=== PATIENT | female | born 1975 | race Caucasian/White ===

== ENCOUNTER → 2019-04-10 | Outpatient (CLI) | payer OTHER ==
[2015-07-08 09:14] VITALS: BP 137/72
[~2019-04-10] MED LIST: ACET-704 PO; ARIP10TA9 PO; CLON-77 PO; FLUO40CA2 PO; HYDR-3164 PO; LISI-334 PO; METF500T16 PO; NAPR-683 PO; QUET100T4 PO; TRAZ-123 PO
--- NOTE | 2019-04-10 16:14 | RAD ---
MRI of the lumbar spine without contrast 04/10/2019 CLINICAL HISTORY: Low back pain. TECHNIQUE: Unenhanced T1-weighted and T2-weighted sagittal and axial and inversion recovery sagittal images of the lumbar spine were obtained. FINDINGS: Minimal S-shaped curvature of the thoracolumbar spine is seen. Degenerative signal changes and loss of height are seen involving the L5-S1 discs. The marrow signal of the visualized bony structures is within normal limits. The conus medullaris is normal morphology, position, and signal characteristics. The L1-2 and L2-3 disc spaces are within normal limits. At the L3-4, L4-5 and L5-S1 disc spaces there are minimal generalized disc bulges. Degenerative changes are seen involving the facet joints bilaterally. There is mild ligamentum flavum hypertrophy bilaterally. Small facet joint effusions are seen. These findings do not result in significant central spinal canal or neural foraminal stenosis. IMPRESSION: The changes of degenerative disc disease are seen throughout the mid and lower lumbar spine. These findings do not result in significant central spinal canal or neural foraminal stenosis. Electronically signed by: Jamey Smith MD (04/10/2019 4:11 PM) [id number]
--- NOTE | 2019-04-10 17:33 | RAD ---
Examination: NECK SOFT TISSUE History: Neck mass Comparison/Correlation: None Findings: Ultrasound examination of the neck was performed at site of a palpable abnormality at the upper neck. There is a cluster of lymph nodes present. Largest of these measures 1.2 cm x 1.1 cm x 0.7 cm. The next largest measures 0.9 cm 0.90 cm x 0.6 centimeter. Cortical thickening of 0.43 cm is evident at the largest of the lymph nodes. Fatty sivakumar are seen however. Additional much smaller lymph nodes are also evident in this region. Impression: Nonenlarged lymph nodes are present corresponding to the palpable abnormality reported. These are of indeterminate significance and probably reactive although more significant process is not entirely excluded. Correlate clinically in determining follow-up. Electronically signed by: Fady Taylor MD (04/10/2019 5:30 PM) [facility]
== END | disposition home or self-care (01) ==
LOC: MRI 15:04
DX: M51.16 Intervertebral disc disorders with radiculopathy, lumbar region (principal); M53.3 Sacrococcygeal disorders, not elsewhere classified; R22.1 Localized swelling, mass and lump, neck
CPT/HCPCS: 72148; 76536

== ENCOUNTER → 2019-09-04 | Outpatient (CLI) | payer OTHER ==
[2015-07-08 09:14] VITALS: BP 137/72
[~2019-09-04] MED LIST changes: +FLUO60TA PO; +LAMO200T6 PO; +insulin pen SUBCUT
--- NOTE | 2019-09-04 22:06 | PAIN ---
DATE OF SERVICE: 09/04/2019 INITIAL CONSULTATION FOR PAIN CLINIC CHIEF COMPLAINT: Low back and left lower extremity pain. HISTORY OF PRESENT ILLNESS: This is a 43-year-old female who presents with history of pain in the low back and bilateral lower extremities, worse on the left for about 10 years, worse over the past 1 year, not a result of any specific injury or accident that she is aware of, but getting worse with time across lower back and lower extremities, mostly in the lateral thighs and anterior thigh, especially on the left side, but also on the right. The patient reports it is worse with walking, standing, changing positions. She is not aware of any specific injury or accident that she is aware of, but has been gradually building up over many years. The patient reports it awakens her multiple times overnight from sleep, does not affect her bowel or bladder control, but does affect her ability to walk and she does use a cane most times, but she does not have it with her today. The patient has had chiropractic treatment in the past. Also, doing exercises and still walking daily, doing stretching and strength exercises. She has not had any formal physical therapy within the last few years, but had some early on about 10 years ago. The patient reports she still does exercises, she was taught in that. The patient reports the pain is now a constant throbbing, described as aching and burning in the low back with some shooting pain in the lower extremities, again slightly worse on the left than the right. The patient rates disability from 0-10, 10 the worst, is a 10 in most categories, family home responsibilities, social activity, recreation, occupation and sexual behavior, 10 in life support activities, and 7 with self-care activities. The patient is currently taking [id number] Tylenol as well as ibuprofen, which does decrease the pain, but only by about 10% or so. The patient reports it is essentially not decreasing the pain effectively. The patient reports no loss of motor function, but significant fatigability, especially left lower extremity with walking and standing. The patient did have MRI scan of the lumbar spine showing degenerative disk disease throughout the mid and lower lumbar spine, L3-L4, L4-L5 and L5-S1, specifically with minimal generalized disk bulges, degenerative changes in the facet joints, also mild ligamentum flavum hypertrophy bilaterally with small facet joint effusion seen. PAST MEDICAL HISTORY: Significant for type 2 diabetes, now insulin-dependent; hypertension, cigarette smoking 1 pack a day for 15 years, sleep apnea, obesity, arthritis, bipolar disorder, anxiety, posttraumatic stress disorder. PREVIOUS SURGERIES: Includes a uterine ablation in 2017. CURRENT MEDICATIONS: Include multivitamins, calcium, acyclovir, Lantus insulin, gabapentin, Victoza, amitriptyline, Diflucan, lisinopril, glimepiride, Lipitor. ALLERGIES: The patient has no known drug allergies. FAMILY HISTORY: Significant for no known diseases or conditions in her family that she is aware of. SOCIAL HISTORY: The patient smokes 1 pack a day, has for 15 years. Does not drink alcohol, does not use any illegal, illicit or recreational drugs. She is single, lives locally in [place], [place]. Reports she is currently on disability, not related to any current pain condition at this time. REVIEW OF SYSTEMS: The patient's review of systems is positive for those items mentioned in history of present illness. All systems reviewed and otherwise negative. It is complete, full and well documented on the patient's chart. PHYSICAL EXAMINATION: VITAL SIGNS: The patient's blood pressure is 102/59, pulse is 116, respirations 18, temperature 98.4 degrees Fahrenheit, height is 5 feet 7 inches, weight is 223 pounds. GENERAL: The patient is awake, alert, oriented, appropriate, very pleasant demeanor. HEENT: Shows normocephalic, atraumatic. Extraocular movements are intact and symmetrical. Oral cavity: Mucous membranes moist and pink. Dentition is intact. NECK: Shows anterior throat supple without palpable lymphadenopathy noted. Swallow reflex symmetrical. Neck shows full rotational motion of cervical spine, both laterally as well as extension and flexion without difficulty. CHEST: Shows normal on inspection. Breath sounds are clear bilaterally. No rales, rhonchi or wheezes auscultated. HEART: Shows S1, S2 clear. No murmurs auscultated. ABDOMEN: Obese but soft, nontender, nondistended. No palpable organomegaly is noted. There is no rebound or guarding demonstrated. BACK: Shows spine grossly in the midline. Normal appearing cervical lordotic curvature, increased thoracic kyphosis and some minor flattening of lumbar lordotic curvature. Lumbar paraspinous muscle shows symmetrical on inspection, on palpation shows some moderate tenderness diffusely only in the low lumbar distribution, more on the right than the left, but without asymmetry, without atrophy, hypertrophy and without trigger points. No tenderness over the spinous processes, sacrum or sacroiliac regions with palpation. The patient does show good rotational motion of lumbar spine, both laterally as well as extension and flexion without significant increase in pain. EXTREMITIES: Lower extremities show deep tendon reflexes at 1+ in the patellar and tendo calcaneus tendons. Motor exam is 4 on a scale of 5 on the left and 5/5 on the right with dorsiflexion, extension, quadriceps and hamstring flexion. Peripheral pulses are 1+ posterior tibia. No peripheral edema is noted bilaterally. Lower extremities are warm and dry to touch, equal in color and appearance. The patient is able to stand, stand on her toes with some moderate tenderness with putting off weight on her left leg and does walk with a slight favoring gait, favoring the left lower extremity, again not using any assistive devices, but reports she does have a cane, which she is going further distances that she uses in her right hand. SKIN: Shows warm and dry, good turgor. No edema. No sores, rashes or bruising throughout. IMPRESSION: 1. This is a 43-year-old female with a long history about 10 years of low back pain, increasing in the lower extremities, again worse on the left than the right in a radicular fashion following L4-L5 dermatomal distribution. 2. MRI scan of lumbar spine as noted. 3. Obesity. 4. Arthritis. 5. Hypertension. 6. Diabetes. PLAN: Options were discussed with the patient including conservative medical managements, continued physical therapies and exercise as well as interventional techniques and she would like to pursue interventional techniques. We discussed a lumbar epidural steroid injection using description as well as anatomical models to describe the procedure. The patient will wait for preauthorization with insurance provider and we will plan on a translaminar approach for lumbar epidural steroid injection at the L4-L5 level at that time. In the meantime, the patient will continue with stretching and strength exercises and walking daily as tolerated and capable and will return for lumbar epidural steroid injection as scheduled. TODD CARRENO MD DR: MARY/carito JOB#: [id number] / [id number] ALEXIA Tran
== END | disposition home or self-care (01) ==
LOC: PNCL 09:09
PROVIDERS: ATTEND Anesthesiology
DX: M51.36 Other intervertebral disc degeneration, lumbar region (principal); I10 Essential (primary) hypertension; E11.9 Type 2 diabetes mellitus without complications; M19.90 Unspecified osteoarthritis, unspecified site; E66.9 Obesity, unspecified
CPT/HCPCS: G0463

== ENCOUNTER → 2019-10-12 | Outpatient (CLI) | payer OTHER ==
[2015-07-08 09:14] VITALS: BP 137/72
[~2019-10-12] MED LIST changes: +IOHEXOL 180 MG/ML 10 ML VIAL. ONE; +methylPREDNISolone ACETATE 40 MG/ML VIAL. ONE; +methylPREDNISolone ACETATE 80 MG/ML VIAL. ONE
--- NOTE | 2019-10-12 15:50 | PAIN ---
DATE OF SERVICE: 10/12/2019 PROGRESS NOTE FOR PAIN CLINIC DIAGNOSIS: Lumbar radiculopathy with lumbar degenerative disk disease. HISTORY OF PRESENT ILLNESS: The patient is a 44-year-old female who returns for followup status post initial evaluation and preauthorization with an insurance provider for lumbar epidural steroid injection. She has obtained that now and would like to proceed. The patient reports still significant pain in the low back and the bilateral lower extremities, worse on the left than the right. The patient reports it is in the posterior gluteus, posterolateral thigh, lateral anterior thigh, anterior medial thigh, medial calf and posterior calf, especially on the left. The patient reports that it is a 9 on a scale of 10 at all times, worst, least, and on average and is a 9 today. The patient reports it is aching, sharp, and tingling, dull in the back but constant in the legs. The patient reports it is worse with walking, standing, and changing positions. Again, it awakens her from sleep, but only very infrequently. It is much better with sitting or lying down, worse with walking and standing. The patient reports no new motor or sensory deficits. PHYSICAL EXAMINATION: VITAL SIGNS: The patient's blood pressure is 120/71, pulse 103, respirations are 20, temperature 98.1 degrees Fahrenheit, height is 5 feet 7 inches, and weight is 228 pounds. GENERAL: The patient is awake, alert, oriented, and appropriate with very pleasant demeanor. HEENT: Shows normocephalic and atraumatic. Extraocular movements are intact and symmetrical. Oral cavity: Mucous membranes are moist and pink. Dentition is intact. NECK: Shows anterior throat supple without palpable lymphadenopathy noted. Swallow reflex symmetrical. CHEST: Shows normal on inspection. Breath sounds are clear. No rales, rhonchi, or wheezes auscultated. HEART: Shows S1, S2 clear. No murmurs auscultated. ABDOMEN: Soft, nontender, and nondistended. No palpable organomegaly is noted. No rebound or guarding demonstrated. BACK: Shows spine grossly in the midline. Normal appearing thoracic kyphosis. Minor flattening of lumbar lordotic curvature. Lumbar paraspinous muscle shows symmetrical on inspection and with palpation shows some moderate tenderness in the middle and lower distribution of paraspinous muscles but without radiation. No tenderness over the spinous processes or sacrum. The patient has good rotational motion of lumbar spine, both laterally as well as extension and flexion without significant increase in pain. EXTREMITIES: The patient's lower extremities show deep tendon reflexes at 1+. The patellar and tendo calcaneus tendons are equal. Motor exam is approximately 4 on a scale of 5 with left dorsiflexion and extension, 5/5 on the right. Peripheral pulses are 1+. No peripheral edema is noted. Options were discussed with the patient. The patient's old chart was reviewed, as her current medication regimen updated. Current review of systems updated today as well. We will proceed with a lumbar epidural steroid injection today with fluoroscopic guidance. Risks were again discussed including but not limited to bleeding, infection, possibility of epidural hematoma, subsequent neurological compromise, dural puncture, headaches, spinal cord and/or nerve damage, side effects of steroid medication, and poor results regarding pain control. The patient understands and wished to proceed. The patient will return to clinic in approximately 2 weeks for followup. She was counseled on return appointment, activity level, and side effects to be aware of. DIAGNOSIS: Lumbar radiculopathy with lumbar degenerative disk disease. PROCEDURE: Lumbar epidural steroid injection, translaminar approach at L4-L5 level using C-arm fluoroscopic guidance under sterile prep and drape using local anesthetic. MEDICATION INJECTED: A total of 120 mg of Depo-Medrol plus 10 mL of preservative-free normal saline and 2 mL of contrast. CONDITION AT DISCHARGE: Stable. The patient tolerated procedure well and had no complications. TODD CARRENO MD DR: MARY/carito JOB#: [id number] / [id number]
== END | disposition home or self-care (01) ==
LOC: PNCL 09:02
PROVIDERS: ATTEND Anesthesiology
DX: M51.16 Intervertebral disc disorders with radiculopathy, lumbar region (principal); F17.210 Nicotine dependence, cigarettes, uncomplicated; Z79.899 Other long term (current) drug therapy
CPT/HCPCS: 62323; J1030; J1040; Q9965